=== PATIENT | female | born 1980 | race Caucasian/White ===

== ENCOUNTER 2025-02-02 00:53 | Emergency (ER) | payer BC, SELFPAY ==
[2025-02-02] VITALS (7 sets, daily range): BP systolic 145; BP diastolic 65–78; PULSE 110–130; RESP 20–22; TEMP 36.7; O2SAT 95–98
--- NOTE | 2025-02-02 01:00 | RT.EKG_ITS ---
APPROVED REPORT Exam: Resting ECG Reason for Exam: tachycardia Patient Location: E HR:124 bpm ECG Measurements Heart Rate 124 AXIS NE 143 P 67 QRSd 83 QRS 7 QT 327 T 51 QTc 468 Conclusion Sinus tachycardia...rate> 99 Paired ventricular premature complexes...sequence of 2 V complexes Aberrant conduction of SV complex(es)...aberrant shape, NE 80-[address] segment or T wave abnormalities to suggest occlusive HI
--- NOTE | 2025-02-02 01:10 | W.ED.GENAD ---
Discharge Plan Discharge Details Chief Complaint: Headache Primary Care Provider: Kamille,Local ED Provider: Laya Rocha [facility] General Mode of arrival: ambulatory. Date/Time Provider Initiated Documentation: 02/02/25 01:05. Limitations to Documentation: no limitations and altered mental status. Information obtained by: patient, family and EMS. HPI Narrative: 45yo F with hx of menstrual migraines presents today with concern for tachycardia. To me patient states she is here because 'of my '. Denies any headache or neck pain, does report nausea or vomiting. Answering in 1-2 word responses. States it is okay to talk further with her who is at bedside. reports that she has episodes like this frequently, usually while on her period, during which she has headache, N/V, and confusion. No history of seizures. He brings her in to the ED today because her HR on her watch was high (110's while laying down) which is not normal for her. The episode today is otherwise typical of these events. He thinks she may be dehydrated; she as not eaten anything in the past day and he is not sure if she has been drinking. She has been vomiting intermittently since thursday, non-bloody non-bilious. No fevers, rash, numbness, weakness, vertigo, vision changes, or other concerns. No recent falls or head injuries. General Stated Complaint: Headache LEDY: 2 Review of Systems Narrative: see HPI Exam Narrative Exam Narrative: General: Alert, non-toxic. Holding her head. Head: Normocephalic, atraumatic Neck: Trachea midline, ?Neck supple. ENT: ?Dry MM.? No oropharygeal lesions or exudate. Cardiac: ?Tachycardiac, regular, no murmurs appreciated Resp: No respiratory distress. CTAB. Abd: ?Soft, non-distended, nontender : ?No suprapubic tenderness. Extremities: ?No deformities.? No peripheral edema. Neuro: ? GCS 15.? PERRL.? EOMI.? Fluent speech, no dysarthria. Motor- 5/5 strength symmetric bilateral upper and lower extremities including shoulder abductors/adductors, elbow flexors/extensors, wrist flexors/extensors, finger abductors/adductors, hipflexors/extensors, knee flexors/extensors, ankle dorsiflexors and planter flexors. Sensation- ?Intact to light touch and symmetric multiple dermatomes including upper and lower extremities Coordination- No dysmetria on finger to nose Reflexes- 2/4 achilles & patellar, no clonus Gait/station: ?Normal stance.? No truncal ataxia. Steady gait with equal normal steps CRANIAL NERVES: II: Pupils equal and reactive, III, IV, : EOM intact, no gaze preference or deviation, no nystagmus. V: normal sensation in V1, V2, and V3 segments bilaterally VII: no asymmetry, no nasolabial fold flattening VIII: normal hearing to speech IX, X: normal palatal elevation, no uvular deviation XI: 5/5 head turn and 5/5 shoulder shrug bilaterally XII: midline tongue protrusion Course Vital Signs Vital signs: Vital Signs Pulse 130 H 02/02/25 00:56 Respiratory Rate 22 02/02/25 00:56 Blood Pressure 145/78 H 02/02/25 00:56 Pulse Oximetry 98 02/02/25 00:56 Pulse 130 H 02/02/25 00:56 Respiratory Rate 22 02/02/25 00:56 Blood Pressure 145/78 H 02/02/25 00:56 Pulse Oximetry 98 02/02/25 00:56 Oxygen Delivery Method Room Air 02/02/25 00:56 Oxygen Flow Rate 0 02/02/25 00:56 Medical Decision Making 45yo F with hx of menstrual migraines presents today with concern for tachycardia. To me patient states she is here because 'of my '; reports N/V and denies headache though she holding her head with her hands. Answering in 1-2 word responses (Ukarainian speaking, fluent in Bengali) States it is okay to talk further with her who is at bedside. reports that she has episodes like this frequently, usually while on her period, during which she has headache, N/V, and confusion. No history of seizures. He brings her in to the ED today because her HR on her watch was high (110's while laying down) which is not normal for her. Usually she is able to take care of herself during these episodes but not over the past few days. Tachycardiac to 120's-130 on arrival, vital signs otherwise reassuring. Slow to respond on exam and seems somewhat confused but is oriented x 4, non-focal neurologic exam. Does appear dry. Will treat initially as complex migraine with compazine, tylenol, benadyrl, IVF. Will evaluate for ICH with head CT; if negative would add toradol. Low suspicion for ischemic stroke with no focal deficits. No fever or neck stiffness to suggest meningitis, encephalitis and the fact that these episodes seem to occur regularly also makes this much less likely. -EKG sinus tachycardia, appropriate intervals. -Labs reviewed as below, CBC with mild leukocytosis (nonspecific), CMP with Cr elevated at 2.9 (pt with no hx of kidney disease, suspect MARIANELA 2/t volume depletion) and no uremia, Mg normal, VBG mixed with mild respiratory alkalosis and metabolic acidosis (suspect ketones), pH 7.43. -CT independently viewed, no large ICH or mass on my view. Radiology read pending. -Urine pending. Planned EMR downtime approaching; any futher documenation will be on paper until EMR is back up. Lab Data Lab results reviewed: Yes I reviewed the patient's lab results. Labs: Laboratory Tests Range/Units 02/02/25 01:05 WBC (4.4-10.8) 10^3/uL 11.25 H RBC (3.93-5.22) 10^6/uL 4.55 Hgb (11.2-15.7) g/dL 14.6 Hct (36.0-46.0) % 42.6 MCV (80-95) fL 94 MCH (27.0-33.0) pg 32.1 MCHC (32.0-36.0) % 34.3 RDW (11.7-14.6) % 13.8 Plt Count (130-400) 10^3/uL 239 MPV (8.0-11.0) fL 8.9 Immature Gran % % 0.3 Neutrophils % % 68.0 Lymphocytes % % 26.1 Monocytes % % 5.3 Eosinophils % % 0.1 Basophils % % 0.2 Nucleated RBC % (0.0-0.3) % 0.0 Absolute Neutrophils (1.2-6.7) 10^3/uL 7.65 H Absolute Lymphocytes (1.2-3.4) 10^3/uL 2.94 Absolute Monocytes (0.1-0.8) 10^3/uL 0.60 Absolute Eosinophils (0.0-0.7) 10^3/uL 0.01 Absolute Basophils (0.0-0.2) 10^3/uL 0.02 VBG pH (7.31-7.41) 7.43 H VBG pCO2 (41-51) mmHg 36 L VBG pO2 mmHg 58 VBG HCO3 (23-28) mmol/L 24 VBG Total CO2 (24-29) mmol/L 21 L VBG O2 Saturation % 89 VBG Base Excess (-2-3) mmol/L 0 Sodium (136-145) mmol/L 141 Potassium (3.5-5.1) mmol/L 3.7 Chloride (98-107) mmol/L 103 Carbon Dioxide (21.0-32.0) mmol/L 24.6 Anion Gap (3-11) mmol/L 13.4 H BUN (7-18) mg/dL 7 Creatinine (0.55-1.02) mg/dL 2.9 H Est GFR (CKD-EPI 2020) (mL/min/1.73m2) 19.73 Glucose (74-106) mg/dL 192 H Calcium (8.5-10.1) mg/dL 9.0 Magnesium (1.8-2.4) mg/dL 2.0 Total Bilirubin (0.2-1.0) mg/dL 0.2 AST (15-37) U/L 24 ALT (14-59) U/L 29 Alkaline Phosphatase (46-116) U/L 54 Total Protein (6.4-8.2) g/dL 7.2 Albumin (3.4-5.0) g/dL 4.1 PFSH Social History Smoking/Tobacco Use Status: Never Smoking risk assessment performed?: Yes Alcohol Intake: current Alcohol Intake frequency: 0-2 drinks per day Drug use: Never
[2025-02-02] MEDS: Normal Saline 1,000 ML 1000 ML IV ×2 (01:13→04:30)
[2025-02-02] MEDS: diphenhydrAMINE 50 MG/ML VIAL IVP (01:14)
[2025-02-02] MEDS: ACETAMINOPHEN 1,000 MG/100 ML BAG 400 MG IVPB (01:14)
[2025-02-02] MEDS: Prochlorperazine 10 MG/2 ML VIAL IVP (01:15)
[2025-02-02 01:16] LABS: BE (Venous) 0 mmol/L (-2-3); HCO3 (Venous) 24 mmol/L (23-28); O2 Sat (Venous) 89 %; TCO2 (Venous) 21 mmol/L (24-29); pCO2 (Venous) 36 mmHg (41-51); pO2 (Venous) 58 mmHg
[2025-02-02 01:18] LABS: Abs Immature Grans 0.03 10^3/uL (0.0-0.06); HCT 42.6 % (36.0-46.0); HGB 14.6 g/dL (11.2-15.7); Immature Grans % 0.3 %; MCH 32.1 pg (27.0-33.0); MCHC 34.3 % (32.0-36.0); MCV 94 fL (80-95); MPV 8.9 fL (8.0-11.0); Platelet Count 239 10^3/uL (130-400); RBC 4.55 10^6/uL (3.93-5.22); RDW 13.8 % (11.7-14.6); RDW-SD 47.2 fL; WBC 11.25 10^3/uL (4.4-10.8)
[2025-02-02 01:36] LABS: ALT 29 U/L (14-59); AST 24 U/L (15-37); Albumin 4.1 g/dL (3.4-5.0); Alkaline Phosphatase 54 U/L (46-116); Anion Gap 13.4 mmol/L (3-11); BUN 7 mg/dL (7-18); Bilirubin, Total 0.2 mg/dL (0.2-1.0); CO2 24.6 mmol/L (21.0-32.0); Calcium 9.0 mg/dL (8.5-10.1); Chloride 103 mmol/L (98-107); Estimated GFR 19.73 (mL/min/1.73m2); Glucose 192 mg/dL (74-106); Magnesium 2.0 mg/dL (1.8-2.4); Potassium 3.7 mmol/L (3.5-5.1); Sodium 141 mmol/L (136-145); Total Protein 7.2 g/dL (6.4-8.2)
--- NOTE | 2025-02-02 01:36 | DI.CT_ITS ---
Exam(s) CT HEAD WO EXAM: CT HEAD WO CLINICAL HISTORY: [place]. TECHNIQUE: Imaging Protocol: Axial computed tomography images with coronal and sagittal reformatted images were created and reviewed COMPARISON: No exams were available for comparison FINDINGS: There are no skull fractures. There is no fluid in the visualized paranasal sinuses. There is no evidence of intracranial hemorrhage, mass effect, or shift of midline structures. There are no extra-axial fluid collections. The ventricles are not enlarged or shifted and there is no blood within the ventricular system nor within the basal cisterns. IMPRESSION: No acute intracranial findings on this noninfused CT scan of the brain. Preliminary virtual Radiology report reviewed RADIATION DOSE DELIVERED: 798.78mGy.cm Total DLP DATA REPOSITORY: All CT scans at this facility are submitted to the National Radiology Data Registry (NRDR) Dose Index Registry (DIR) with the [employer] (A[employer]). RADIATION OPTIMIZATION: All CT scans at this facility use at least one of these dose optimization techniques: automated exposure control; mA and/or kV adjustment per patient size (includes targeted exams where dose is matched to clinical indication); or iterative reconstruction.
--- NOTE | 2025-02-02 01:48 | DI.VRAD_ITS ---
PROCEDURE INFORMATION: Exam: CT Head Without Contrast Exam date and time: 02/02/2025 1:24 AM Age: 45 years old Clinical indication: Pain; Headache not specified TECHNIQUE: Imaging protocol: Computed tomography of the head without contrast. Radiation optimization: All CT scans at this facility use at least one of these dose optimization techniques: automated exposure control; mA and/or kV adjustment per patient size (includes targeted exams where dose is matched to clinical indication); or iterative reconstruction. COMPARISON: No relevant prior studies available. FINDINGS: Brain: There is no significant cerebral atrophy present. There is no significant white matter disease present. There is no evidence of intracranial hemorrhage. There is no evidence of acute intracranial injury or other pathologic process. There is no evidence of an acute ischemic event. No evidence of an acute intracranial abnormality. Cerebral ventricles: The ventricular system is normal in caliber and are seen in the midline. Paranasal sinuses: There is no evidence of fluid levels, mucoperiosteal thickening, or opacification to suggest acute or chronic sinusitis. Mastoid air cells: The mastoid aircells are normal. Orbital cavities: The orbits are normal without evidence of fracture. There is no evidence of retro-bulbar hemorrhage. There is no evidence of globe or lens injury. Bones: The bony cranium shows no evidence of injury or other acute pathologic processes. Soft tissues: The extracranial soft tissues are normal. IMPRESSION: No evidence of an acute intracranial abnormality. Dictated and Authenticated by: Hank Alford MD. Orderin Josefina Asif MD
[2025-02-02] MEDS: Ketorolac 15 MG/ML VIAL IVP (01:54)
[2025-02-02 01:56] LABS: Lab Add On Test DONE
[2025-02-02 01:59] LABS: Lab Add On Test DONE
[2025-02-02] MEDS: Dexamethasone 10 MG/ML VIAL (02:45)
[2025-02-02] MEDS: Droperidol 5 MG/2 ML VIAL (02:47)
[2025-02-02] MEDS: MAGNESIUM SULFATE 1 GM/100 ML BAG 400 GM (02:50)
--- NOTE | 2025-02-02 03:49 | W.EDPROG ---
Date of service: 02/02/25 Time of Service: 03:49 Medical Decision Making EMR now back up. CT negative. In the interval pt received toradol, droperidol, dexamethasone, magnesium, and more IVF; HR improving. On reassessment patient does now report a headache. She is alert and oriented, no longer seems confused. She requests discharge home. I am concerned about her MARIANELA and would prefer her to stay in the hospital however she is adamantly opposed to this; states I don't want to be in the hospital. We discussed the risks including worsening kidney function, kidney failure, dialysis, if she is not able to stay hydrated at home. She verbalized understanding of these risks and again stated she wanted to be discharged and she does demonstrate decision making capacity at this time; after further discussion agreed to additional IVF and repeat BMP while awaiting ride. Encouraged her to trial PO fluids here, she refuses and states she will drink when she gets home. I again stressed the importance of hydration to protect her kidney function, especially when she goes home and no longer has IVF running. BMP after 2 liters (and prior to 3rd liter) with Cr improving now 2.3. Anion gap remains slightly elevated likely 2/t ketones. On reassessment HR remains low 100's, does increase to 120's with minimal exertion (moving around in bed). She remains insistent on leaving the hospital, does not want to wait to provide a urine sample, and refuses any further testing or assessment. She again demonstrates decision making capacity. Sent prescription for zofran. Instructions and return precautions were reviewed with patient who verbalized understanding. All questions were answered. subsequently to bedside to drive her home and also attempted to convince patient to stay, she again refused. He again affirms that this episode is typical of her menstrual migraines and that she rarely consents to hospital stay. Discharge instructions reviewed with as well. Left AMA, encouraged to return should she change her mind or her condition worsen. Lab Data Lab results reviewed: Yes I reviewed the patient's lab results. Labs: Laboratory Tests Range/Units 02/02/25 02/02/25 02/02/25 01:05 01:54 04:05 WBC (4.4-10.8) 10^3/uL 11.25 H RBC (3.93-5.22) 10^6/uL 4.55 Hgb (11.2-15.7) g/dL 14.6 Hct (36.0-46.0) % 42.6 MCV (80-95) fL 94 MCH (27.0-33.0) pg 32.1 MCHC (32.0-36.0) % 34.3 RDW (11.7-14.6) % 13.8 Plt Count (130-400) 10^3/uL 239 MPV (8.0-11.0) fL 8.9 Immature Gran % % 0.3 Neutrophils % % 68.0 Lymphocytes % % 26.1 Monocytes % % 5.3 Eosinophils % % 0.1 Basophils % % 0.2 Nucleated RBC % (0.0-0.3) % 0.0 Absolute Neutrophils (1.2-6.7) 10^3/uL 7.65 H Absolute Lymphocytes (1.2-3.4) 10^3/uL 2.94 Absolute Monocytes (0.1-0.8) 10^3/uL 0.60 Absolute Eosinophils (0.0-0.7) 10^3/uL 0.01 Absolute Basophils (0.0-0.2) 10^3/uL 0.02 VBG pH (7.31-7.41) 7.43 H VBG pCO2 (41-51) mmHg 36 L VBG pO2 mmHg 58 VBG HCO3 (23-28) mmol/L 24 VBG Total CO2 (24-29) mmol/L 21 L VBG O2 Saturation % 89 VBG Base Excess (-2-3) mmol/L 0 Sodium (136-145) mmol/L 141 142 Potassium (3.5-5.1) mmol/L 3.7 4.0 Chloride (98-107) mmol/L 103 105 Carbon Dioxide (21.0-32.0) mmol/L 24.6 23.0 Anion Gap (3-11) mmol/L 13.4 H 14.0 H BUN (7-18) mg/dL 7 5 L Creatinine (0.55-1.02) mg/dL 2.9 H 2.3 H Est GFR (CKD-EPI 2020) (mL/min/1.73m2) 19.73 26.06 Glucose (74-106) mg/dL 192 H 166 H Calcium (8.5-10.1) mg/dL 9.0 7.8 L Magnesium (1.8-2.4) mg/dL 2.0 Total Bilirubin (0.2-1.0) mg/dL 0.2 AST (15-37) U/L 24 ALT (14-59) U/L 29 Alkaline Phosphatase (46-116) U/L 54 Total Protein (6.4-8.2) g/dL 7.2 Albumin (3.4-5.0) g/dL 4.1 Serum HCG, Qual Negative Ethyl Alcohol (<10) mg/dL < 3.0 Add-On Test Request DONE DONE Discharge Plan Disposition Patient Disposition: Against Medical Advice Condition: Improving Discharge Details Clinical Impression: MARIANELA (acute kidney injury), Migraine Primary Care Provider: Kamille,Local ED Provider: Laya Rocha Home Meds and New Rx's Prescriptions: New ondansetron 4 mg tablet,disintegrating 4 mg PO Q8H PRNQty: 20 0RF Discharge Instructions Instructions: Acute Kidney Injury (DC), Headache, Adult ED Additional Instructions: You have chosen to leave AMA. Please return to the emergency department if you change your mind. You can take zofran up to every 8 hours as needed for vomiting. Please call your primary care doctor in the morning to schedule an appointment for within the next 48 hours to followup on your visit here. It is very important that you stay hydrated at home. Your kidney function is damaged and will get worse if you do not get enough fluids. This can cause you to need dialysis for the rest of your life, or to . Please return to the emergency department if you are not able to keep down fluids, are not willing to drink fluids, do not urinate at least 4-6 times in 24 horus, if you develop numbnes or weakness, vertigo, or if you have any other concerns.
[2025-02-02 03:51] LABS: HCG Qual (Serum) Negative
--- NOTE | 2025-02-02 04:06 | NUR.NOTE ---
Provider requesting PO trial for pt. This RN offered pt water or toney ruth. Pt refused anything to drink. This RN educated pt on benfits of ensuring pt can tolerate oral intake for safe discharge. Pt still denied PO intake after education. Provider made aware.
[2025-02-02 04:39] LABS: Anion Gap 14.0 mmol/L (3-11); BUN 5 mg/dL (7-18); CO2 23.0 mmol/L (21.0-32.0); Calcium 7.8 mg/dL (8.5-10.1); Chloride 105 mmol/L (98-107); Estimated GFR 26.06 (mL/min/1.73m2); Glucose 166 mg/dL (74-106); Potassium 4.0 mmol/L (3.5-5.1); Sodium 142 mmol/L (136-145)
== END 2025-02-02 06:06 | disposition left against medical advice (07) ==
PROVIDERS: Emergency Provider Student in an Organized Health Care Education/Training Program
DX: G43.909 Migraine, unspecified, not intractable, without status migrainosus (principal); N17.9 Acute kidney failure, unspecified
CPT/HCPCS: 00123; 36415; 80048; 80053; 82805; 93005; 96361; 96365; 96375; 99285; 70450; 80320; 83735; 84703; 85025; 93010; 99284; J0131; J0780; J1100; J1200; J1790; J1885; J3475